=== PATIENT | female | born 1965 | race Caucasian/White ===

== ENCOUNTER → 2017-08-26 | Outpatient (CLI) | payer OTHER ==
[~2017-08-26] MED LIST: KRIL1000; MULTTAB5; SUMA50TA15 PO; VITA400C3 PO; levoxyl; prilosec
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
== END | disposition home or self-care (01) ==
LOC: C.RAD1850 16:23
PROVIDERS: ATTEND Nurse Practitioner
DX: M54.2 Cervicalgia (principal); M54.6 Pain in thoracic spine; V49.9XXA Car occupant (driver) (passenger) injured in unspecified traffic accident, initial encounter